=== PATIENT | female | born 2000 | race Caucasian/White ===

== ENCOUNTER 2021-04-25 06:19 | Emergency (ER) | payer OTHER ==
[~2021-04-25] VITALS: Ht 147.3 cm; Wt 52.2 kg
[2021-04-25 06:22] VITALS: BP 127/82
[2021-04-25] MEDS ORDERED: LIDOCAINE MPF 1% 5 ML ONE (07:45)
[2021-04-25] MEDS ORDERED: cefTRIAXone 500 MG VIAL ONE (07:45)
[2021-04-25] MEDS: cefTRIAXone 500 MG in LIDOCAINE MPF 1% 1 ML IM ONE (08:03)
[2021-04-25] MEDS ORDERED: IBUP-2213 PO (09:04)
[2021-04-25] MEDS ORDERED: DOXY100C9 PO (09:04)
[2021-04-25 14:15] VITALS: BP 129/71
== END 2021-04-25 14:16 | disposition home or self-care (01) ==
LOC: MED 06:19
DX: T74.21XA Adult sexual abuse, confirmed, initial encounter (principal); J45.909 Unspecified asthma, uncomplicated; Z79.899 Other long term (current) drug therapy; Z11.3 Encounter for screening for infections with a predominantly sexual mode of transmission
CPT/HCPCS: 36415; 81002; 81025; 87210; 87491; 96372; 99285; J0696; J2001